=== PATIENT | female | born 1935 | race Caucasian/White ===

== ENCOUNTER 2018-09-04 17:21 | Inpatient (IN) | payer MEDICARE, MEDICAID ==
[2018-09-04 18:14] LABS: PTT 78.5 SEC (22.9-36.1)
[2018-09-04 18:15] LABS: Prothrombin Time 89.1 SEC (12.0-14.7)
[2018-09-04 18:18] LABS: Hemoglobin 12.5 g/dL (12.0-16.0); Mean Corpuscular HGB CONC 30.4 g/dL (32.0-36.0); Mean Corpuscular Hemoglobin 29.1 pg (27.0-31.0); Mean Corpuscular Volume 95.7 fL (78.0-98.0); Mean Platelet Volume 9.7 fL (7.4-10.4); Platelet Count 189 thou/uL (130-400); RBC Distribution Width 13.6 % (11.5-14.5); Red Blood Cell (RBC) Count 4.28 mill/uL (4.20-5.40); White Blood Cell (WBC) Count 4.6 thou/uL (4.8-10.8)
[2018-09-04 18:25] LABS: INR-International Normal Ratio 11.6
[2018-09-04 18:27] LABS: ALT (SGPT) 14 U/L (8-55); AST (SGOT) 18 U/L (5-34); Albumin 3.1 g/dL (3.4-4.8); Alkaline Phosphatase 136 U/L (40-150); Anion Gap 11 mmol/L (10-20); BUN (Urea Nitrogen) 55 mg/dL (9.8-20.1); Bilirubin, Total 1.2 mg/dL (0.2-1.2); Calc. Creatinine Clearance 0 mL/min (70-130); Calcium 9.9 mg/dL (7.8-10.44); Carbon Dioxide 22 mmol/L (23-31); Chloride 109 mmol/L (98-107); Estimated GFR-MDRD 23; Globulin 3.9 g/dL (2.4-3.5); Glucose 119 mg/dL (83-110); Magnesium 2.2 mg/dL (1.6-2.6); Sodium 137 mmol/L (136-145)
[2018-09-04 18:31] LABS: CKMB 3.2 ng/mL (0-6.6); Troponin I 0.021 ng/mL (< 0.028)
[2018-09-04 18:32] LABS: Eosinophils 3 % (0-10); Lymphocytes 20 % (21-51); MDiff Complete? YES; Monocytes 11 % (0-10); Neutrophil 64 % (42-75); PLT Morphology Comment Appears Adequate; RBC Morphology Normal
[2018-09-04 18:34] LABS: Bilirubin Negative (Negative); Blood, Urine Large (Negative); Clarity CLOUDY (Clear); Glucose, Urine (Dipstick) Negative (Negative); Leukocyte Large (Negative); Nitrite Positive (Negative); Protein, Urine (Dipstick) 100 mg/dL (Neg-Trace); Specific Gravity, Urine 1.017 (1.002-1.036); pH, Urine 7.5 (5.0-9.0)
[2018-09-04 18:38] LABS: Bacteria/HPF 4+ HPF (None Seen); Pathc Cast-AUWi Flag 1.45 (0-2.49); RBC/HPF GREATER THAN 50-TNTC HPF (0-3); Squamous Epithelial 0-3 HPF (0-3)
[2018-09-04] MEDS ORDERED: Phytonadione 10 MG in Sodium Chloride 0.9% 50 ML IVPB SCH (18:45)
[2018-09-04 18:49] LABS: Hyaline Casts/LPF 0-3 HYALINE CAST LPF (0-3 Hyaline)
[2018-09-04] MEDS ORDERED: cefTRIAXone\\ROCEPHIN 2 GM VIAL ONE (18:51)
--- NOTE | 2018-09-04 18:53 | RAD ---
CHEST ONE VIEW: 09/04/18 INDICATION: Cough with UTI. FINDINGS: There is cardiomegaly with pulmonary vascular congestion and bilateral perihilar edema. There are tin y bilateral pleural effusions. No pneumothorax is evident. There are vascular calcifications of the a ortic arch. No acute osseous abnormality is noted. IMPRESSION: Findings suggesting CHF. POS: [facility]
[2018-09-04 19:03] LABS: Analyzer IN Cardio ER; Base Excess (BEa) -3.7 mEq/L (-2.0 to +3.0); CO2 Tension 36.9 mmHg (35.0-45.0); Calcium, Ionized 1.25 mmol/L (1.12-1.30); Carboxyhemoglobin (COHb) 1.1 gm% (0.0-3.0); Hemoglobin (Hb) 12.4 g/dL (12.0-16.0); Potassium - ABG Lab 4.77 mmol/L (3.70-5.30); pH, Arterial 7.37 (7.35-7.45)
[2018-09-04 19:05] LABS: ALV-art Gradient 33.035 (0-20); Puncture Site RRA
[2018-09-04] MEDS ORDERED: Vancomycin HCl 500 MG VIAL ONE (20:23)
--- NOTE | 2018-09-04 21:27 | CT ---
CT OF THE BRAIN WITHOUT CONTRAST: 09/04/18 INDICATION: Altered mental status with history of infection and A-fib. FINDINGS: There is soft tissue gas seen within the scalp of the left temporalis region as well as overlying the left supraorbital region which is nonspecific. Generalized cerebral and cerebellar atrophy is stable. Chronic small vessel white matter ischemic ashly nge is similar appearing. No midline shift is present. The skull is intact. Mastoid air cells are liam ar. IMPRESSION: 1. No acute intracranial abnormality. 2. Scalp soft tissue gas may reflect laceration or possibly a wound within this area. Recommend correlation. Also this may be related to venous gas within the scalp veins related to recent IV initi ation. POS: [facility]
[2018-09-04 21:58] LABS: Lactic Acid 1.6 mmol/L (0.5-2.2)
[2018-09-05 00:27] VITALS: BMI 31.8
[2018-09-05] MEDS: Lactated Ringer's 1,000 ML IV SCH ×2 (01:00→09:29)
[2018-09-05] MEDS ORDERED: Acetaminophen 325 MG TAB PO PRN (01:38)
[2018-09-05] MEDS ORDERED: Bisacodyl 10 MG SUPP PR PRN (01:38)
[2018-09-05] MEDS ORDERED: Ondansetron ODT 4 MG TAB PO PRN (01:38)
[2018-09-05] MEDS: Piperacillin/Tazobactam 2.25 GM in Sodium Chloride 0.9% 100 ML IVPB SCH ×4 (02:48→20:43)
[2018-09-05] MEDS ORDERED: Docusate 100 MG CAP PO PRN (02:50)
[2018-09-05] MEDS ORDERED: Cholestyramine/Aspartame 4 gm Packet PO PRN (02:50)
[2018-09-05 04:59] LABS: ALT (SGPT) 12 U/L (8-55); AST (SGOT) 16 U/L (5-34); Albumin 2.7 g/dL (3.4-4.8); Alkaline Phosphatase 114 U/L (40-150); Anion Gap 13 mmol/L (10-20); BUN (Urea Nitrogen) 54 mg/dL (9.8-20.1); Bilirubin, Total 1.2 mg/dL (0.2-1.2); Calc. Creatinine Clearance 31 mL/min (70-130); Calcium 9.2 mg/dL (7.8-10.44); Carbon Dioxide 19 mmol/L (23-31); Chloride 113 mmol/L (98-107); Estimated GFR-MDRD 27; Globulin 3.3 g/dL (2.4-3.5); Glucose 90 mg/dL (83-110); Potassium 4.8 mmol/L (3.5-5.1); Sodium 140 mmol/L (136-145)
[2018-09-05 05:24] LABS: Band 2 % (5-11); Eosinophils 2 % (0-10); Hemoglobin 11.1 g/dL (12.0-16.0); Lymphocytes 22 % (21-51); MDiff Complete? YES; Mean Corpuscular HGB CONC 30.6 g/dL (32.0-36.0); Mean Corpuscular Hemoglobin 29.4 pg (27.0-31.0); Mean Corpuscular Volume 96.2 fL (78.0-98.0); Mean Platelet Volume 9.8 fL (7.4-10.4); Monocytes 15 % (0-10); Neutrophil 59 % (42-75); PLT Morphology Comment Appears Adequate; Platelet Count 181 thou/uL (130-400); RBC Distribution Width 13.6 % (11.5-14.5); RBC Morphology Normal; Red Blood Cell (RBC) Count 3.76 mill/uL (4.20-5.40); White Blood Cell (WBC) Count 5.8 thou/uL (4.8-10.8)
--- NOTE | 2018-09-05 08:55 | HP ---
CHIEF COMPLAINT: Urinary tract infection. HISTORY OF PRESENT ILLNESS: This is an 83-year-old female with past medical history of endocarditis, recurrent UTIs, constipation, dementia, atrial fibrillation, GERD, hypertension, CHF, cellulitis of the lower extremities, presenting with recurrent UTI, which has failed outpatient antibiotics. At th is point, the patient has been transferred from [place] and she has been getting worse on her Cipro ant ibiotics, which was given from before on 08/31/2018. REVIEW OF SYSTEMS: Unable to be obtained. The patient is demented. PAST MEDICAL HISTORY: Endocarditis, frequent UTIs, constipation, dementia, atrial fibrillation, GERD , edema, hypertension, CHF, cellulitis of the lower extremities bilaterally. PAST SURGICAL HISTORY: Unable to obtain at this time. PSYCHIATRIC HISTORY: Depression per electronic medical records. FAMILY HISTORY: Unable to obtain at this time. KNOWN ALLERGIES: TETANUS. CURRENT MEDICATIONS: Per the patient's electronic medical records, the patient takes acetaminophen, cholestyramine, Cipro, Colace, Coumadin 3 mg, Lasix 40 mg, lisinopril 5 mg, metoprolol 100 mg orally, Nystatin powder, pantoprazole, and potassium chloride. PHYSICAL EXAMINATION: VITAL SIGNS: Blood pressure is 166/99, pulse of 63, respiratory rate of 14, temperature of 92.3, O2 saturation of 100. GENERAL APPEARANCE: The patient is lying in bed, confused, demented. HEENT: Normocephalic, atraumatic. Pupils are equally round and reactive to light. Extraocular move ments are intact. No scleral icterus. NECK: Trachea is midline. No JVD. Full range of motion. LUNGS: Clear to auscultation bilaterally. No wheezing, no rales, no rhonchi appreciated. CARDIOVASCULAR: Positive S1 and S2, regular rate and rhythm. No murmurs, no gallops, no rubs apprec iated. ABDOMEN: Soft, nontender, nondistended, obese abdomen, positive bowel sounds in all quadrants. No m asses. No pulsatile mass. No peritoneal signs. EXTREMITIES: Patient has 5/5 upper extremity strength, 5/5 lower extremity strength. The patient chen s cellulitic changes at the lower extremity. This is some erythema with some mild abrasions noted at the anterior aspect of her leg, right leg is bigger than left leg. NEUROLOGIC: The patient is demented; however, the patient is able to move extremities spontaneously. No gross focal neurologic deficits noted. SKIN: Refer to description in extremities. PSYCHIATRIC: Demented. EKG: A 12-lead shows atrial fibrillation. EMERGENCY DEPARTMENT COURSE: The patient received vancomycin, Rocephin, vitamin K injection, sodium chloride. CT of the brain showed no acute intracranial pathology. Chest x-ray showed findings suggestive of CH F. LABORATORY DATA: WBC is 4.6, hemoglobin is 12.5, hematocrit is 41.0, platelets of 189. PT is 89.1. INR is 11.6, PTT 78.5. ABGs: Patient's pH is 7.3, pCO2 is 36, pO2 is 149. Sodium 137, potassium 5 .0, chloride 109, carbon dioxide of 22, BUN is 55, creatinine is 2.04, lactic acid of 2.2. TSH is 3. 4. Urine nitrite is positive and leukoesterase is large. ASSESSMENT AND PLAN: This is an 83-year-old female being admitted for: 1. Sepsis secondary to urinary tract infection. At this point, we are going to continue the patient on current antibiotics. We will continue gentle hydration. We will monitor the patient closely. 2. Hypothermia. Patient's TSH is normal. We are re-warming the patient with the Janette Hugger. We w ill continue to monitor the patient's blood pressure closely. 3. Supratherapeutic INR. We are giving the patient vitamin K. We will monitor patient's coags and trend the patient's INR. Patient's warfarin is being held at this time and can be started when INR i s below 3. 4. Dementia. Patient has a history of dementia. Patient's baseline is not really known. At this t jo, we will just monitor. 5. Lower extremity cellulitis. We have patient on vancomycin and patient is also on Rocephin. We w ill continue vancomycin and Rocephin. We will monitor the patient closely. 6. Deep venous thrombosis and gastrointestinal prophylaxis.
[2018-09-05] MEDS ORDERED: Prevnar 13-Val Conj/PF 0.5 ML SYRINGE IM ONE (09:00)
[2018-09-05] MEDS ORDERED: Lisinopril 5 MG TAB PO SCH (09:00)
[2018-09-05] MEDS: Famotidine 20 MG TAB PO SCH (09:17)
--- NOTE | 2018-09-05 09:55 | PDOC.PN ---
- Subjective Encounter Start Date: 09/05/18 Encounter Start Time: 09:54 Ms. Cortez was seen today in follow-up of UTI with sepsis. She is sleeping and will grimace a little, but will not awaken fully. - Objective Resuscitation Status: Resuscitation Status DNR:Do Not Resuscitate MAR Reviewed: Yes Vital Signs & Weight: Vital Signs (12 hours) Temp Pulse Resp BP Pulse Ox 09/05/18 08:00 100 09/05/18 07:44 99.6 F 61 14 83/39 L 100 09/05/18 04:00 95.5 F L 78 19 117/88 99 09/05/18 01:00 98 09/05/18 00:25 93.8 F L 56 L 20 142/112 H 98 Weight Weight 191 lb 12.835 oz I&O: 09/04/18 09/05/18 09/06/18 06:59 06:59 06:59 Intake Total 750 Output Total 350 Balance 400 Result Diagrams: 09/05/18 04:01 09/05/18 04:01 Additional Labs: Accuchecks 09/04/18 18:05 POC Glucose 112 H Phys Exam - Physical Examination HEENT: PERRLA, sclera anicteric Respiratory: no wheezing, no rales, no rhonchi, clear to auscultation bilateral Cardiovascular: no rub, irregular no gallop, and 2/6 systolic murmur Gastrointestinal: soft, non-tender, no distention, positive bowel sounds Musculoskeletal: pulses present, edema present + mild erythema bilaterally Neurological: moves all 4 limbs Dx/Plan (1) UTI (urinary tract infection) Status: Acute (2) Sepsis Code(s): A41.9 - SEPSIS, UNSPECIFIED ORGANISM Status: Acute (3) Warfarin-induced coagulopathy Code(s): D68.32 - HEMORRHAGIC DISORD D/T EXTRINSIC CIRCULATING ANTICOAGULANTS; T45.515A - ADVERSE EFFECT OF ANTICOAGULANTS, INITIAL ENCOUNTER Status: Acute (4) Acute kidney injury Code(s): N17.9 - ACUTE KIDNEY FAILURE, UNSPECIFIED Status: Acute (5) Acute metabolic encephalopathy Code(s): G93.41 - METABOLIC ENCEPHALOPATHY Status: Acute Comment: Due to sepsis (6) Dementia Code(s): F03.90 - UNSPECIFIED DEMENTIA WITHOUT BEHAVIORAL DISTURBANCE Status: Chronic (7) Persistent atrial fibrillation Code(s): I48.1 - PERSISTENT ATRIAL FIBRILLATION Status: Chronic - Plan * UTI with sepsis- continue Vancomycin and Zosyn- await urine culture results- culture results from her previous admission were noted ( E. Coli and Proteus- sensitive to quinolones). * Coagulopathy- due to coumadin, and exacerbated by sepsis- will re-check the INR today * Metabolic encephalopathy- from UTI and sepsis- continue treatment * Acute kidney Injury- from sepsis and volume depletion- will discontinue Lactated ringer's solution, and change to NS- continue to monitor creatinine * Cellulitis vs. Chronic venous stasis changes- continue antibiotics, and monitor progress * AFIB- her heart rate is controlled * Prognosis- guarded
[2018-09-05] MEDS ORDERED: Sodium Chloride 0.9% 500 ML IV SCH (10:15)
[2018-09-05 10:43] LABS: INR-International Normal Ratio 2.8; Prothrombin Time 29.7 SEC (12.0-14.7)
[2018-09-05] MEDS: Sodium Chloride 0.9% 1,000 ML IV SCH (12:02)
--- NOTE | 2018-09-05 15:44 | CON ---
DATE OF CONSULTATION: 09/05/2018 HISTORY: This is an 83-year-old demented patient who was brought in last night with a UTI. She is o n MICU. REASON FOR CONSULTATION: Unable to get any information from the patient. Clearly, she is encephalop athic. She apparently has had acute mental status change and hypertension. She carries a diagnosis of atrial fibrillation. She was placed on some kind of antibiotics, apparently did not get any better. There are no family members here at the bedside. She carries a past medical history of presumed endocarditis, congestive heart failure, cellulit is, dementia, Afib, and chronic constipation. PAST SURGICAL HISTORY: Unable to get at this time. MEDICATIONS: Medicine list that was brought in from the custodial includes, 1. Coumadin 3 mg. 2. Zoloft 100. 3. Potassium. 4. . 5. Lasix 40. She is now on vancomycin and Zosyn for presumed UTI. REVIEW OF SYSTEMS: Unobtainable. PHYSICAL EXAMINATION: VITALS: Saturations 100% on 3 liters, temperature is 99. Blood pressure 83/39. NEUROLOGICAL: Unresponsive. CHEST: Decreased breath sounds. No wheezing or crackles. CARDIAC: Normal S1, S2. No gallops. ABDOMEN: Soft, no masses. LABORATORY AND X-RAY FINDINGS: There was a blood gas done which shows a pO2 of 149, pCO2 of 36, pH o f 7.37, on 3 liters nasal O2. Creatinine is 1.8, BUN is 54. Electrolytes are normal. Urine shows g reater than 50 wbc's. ASSESSMENT: Urinary tract infection, dementia azotemia, possibly congestive heart failure based on t he x-ray. CT of brain, again no acute changes. She is apparently a DNR. Antibiotics for UTI continued. She probably can be transferred out of the IMCU. She is on no pressors. Pulmonary will follow while in the MICU. This is a consultation note, 70 minutes, 50% spent in direct patient care.
[2018-09-05] MEDS ORDERED: Warfarin Sodium 3 MG TAB PO SCH (17:00)
[2018-09-05] MEDS ORDERED: cefTRIAXone\\ROCEPHIN 1 GM in Sodium Chloride 0.9% 100 ML IVPB SCH (18:00)
[2018-09-05] MEDS ORDERED: Vancomycin HCl 1 GM in Premix Bag 1 BAG IVPB SCH (20:00)
[2018-09-06] MEDS: Sodium Chloride 0.9% 1,000 ML IV SCH ×3 (00:47→17:29)
[2018-09-06] MEDS: Piperacillin/Tazobactam 2.25 GM in Sodium Chloride 0.9% 100 ML IVPB SCH ×2 (02:29→09:22)
[2018-09-06 05:24] LABS: Prothrombin Time 22.7 SEC (12.0-14.7)
[2018-09-06 05:40] LABS: Band 1 % (5-11); Eosinophils 3 % (0-10); Hemoglobin 11.6 g/dL (12.0-16.0); Lymphocytes 24 % (21-51); MDiff Complete? YES; Mean Corpuscular HGB CONC 30.3 g/dL (32.0-36.0); Mean Corpuscular Hemoglobin 28.8 pg (27.0-31.0); Mean Corpuscular Volume 94.9 fL (78.0-98.0); Mean Platelet Volume 9.3 fL (7.4-10.4); Monocytes 9 % (0-10); Neutrophil 60 % (42-75); PLT Morphology Comment Appears Adequate; Platelet Count 162 thou/uL (130-400); RBC Distribution Width 13.6 % (11.5-14.5); RBC Morphology Normal; Reactive Lymphocytes 1 % (0-10); Red Blood Cell (RBC) Count 4.02 mill/uL (4.20-5.40); White Blood Cell (WBC) Count 7.1 thou/uL (4.8-10.8)
[2018-09-06 05:52] LABS: Anion Gap 13 mmol/L (10-20); BUN (Urea Nitrogen) 57 mg/dL (9.8-20.1); Calc. Creatinine Clearance 27 mL/min (70-130); Calcium 8.9 mg/dL (7.8-10.44); Carbon Dioxide 18 mmol/L (23-31); Chloride 117 mmol/L (98-107); Estimated GFR-MDRD 23; Glucose 84 mg/dL (83-110); Potassium 5.9 mmol/L (3.5-5.1); Sodium 142 mmol/L (136-145)
[2018-09-06] MEDS: Famotidine 20 MG TAB PO SCH (08:35)
--- NOTE | 2018-09-06 08:37 | EKG ---
Test Reason : SEPSIS ALERT Blood Pressure : / mmHG Vent. Rate : 058 BPM Atrial Rate : 067 BPM P-R Int : 000 ms QRS Dur : 100 ms QT Int : 508 ms P-R-T Axes : 000 -26 009 degrees QTc Int : 498 ms Atrial fibrillation with slow ventricular response Prolonged QT Abnormal ECG Confirmed by AUDRA CORTEZ ([id number]) on 09/06/2018 8:37:01 AM Referred By: Confirmed By:AUDRA CORTEZ
[2018-09-06] MEDS: cefTRIAXone\\ROCEPHIN 1 GM in Sodium Chloride 0.9% 100 ML IVPB SCH (11:33)
[2018-09-06] MEDS: Hydrocortisone Sod Succ/PF 100 mg/2 ml Vial IVP SCH ×2 (11:33→17:36)
[2018-09-06] MEDS ORDERED: Sodium Chloride 0.9% 500 ML IV SCH (12:15)
--- NOTE | 2018-09-06 12:20 | PRG ---
DATE OF SERVICE: 09/06/2018 SUBJECTIVE: This morning, she appears less responsive. PHYSICAL EXAMINATION: VITAL SIGNS: Systolic is only 98, sats 100% on 3 liters, temperature 97.2. GENERAL APPEARANCE: She appears to be . No verbal communication. CHEST: Decreased breath sounds, no wheezing. CARDIAC: Normal S1, S2, no gallops or masses. LABORATORY DATA: Sodium is 142, creatinine is 2, BUN is 57. Urine is growing Morganella. White count only 7,000. IMPRESSION: 1. Hypertension, urinary tract infection Morganella. 2. Encephalopathy. She is a DNR. PLAN: I have added IV fluids and steroids to her present antibiotic coverage. We will follow.
--- NOTE | 2018-09-06 12:23 | PDOC.PN ---
- Subjective Encounter Start Date: 09/06/18 Encounter Start Time: 12:21 Ms. Cortez was seen today in follow-up. I am told she was awake, and talking last night, but now she is very somnolent, and barely opens her eyes. - Objective Resuscitation Status: Resuscitation Status DNR:Do Not Resuscitate MAR Reviewed: Yes Vital Signs & Weight: Vital Signs (12 hours) Temp Pulse Resp BP Pulse Ox 09/06/18 11:02 96.3 F L 58 L 18 98/41 L 09/06/18 07:50 100 09/06/18 07:31 97.2 F L 19 94/46 L 09/06/18 04:00 97.2 F L 74 16 83/47 L 100 Weight Admit Weight 191 lb 12.835 oz Weight 191 lb 12.835 oz I&O: 09/05/18 09/06/18 09/07/18 06:59 06:59 06:59 Intake Total 750 3511 Output Total 350 250 Balance 400 3261 Result Diagrams: 09/06/18 04:56 09/06/18 04:56 Phys Exam - Physical Examination HEENT: PERRLA Respiratory: no wheezing, no rales, no rhonchi, clear to auscultation bilateral Cardiovascular: RRR, no significant murmur, no rub no gallop Gastrointestinal: soft, non-tender, no distention, positive bowel sounds Musculoskeletal: edema present + generalized edema on the upper and lower extremities, as well as some bruising Deviation from normal: Confused and somnolent Dx/Plan (1) UTI (urinary tract infection) Status: Acute (2) Sepsis Code(s): A41.9 - SEPSIS, UNSPECIFIED ORGANISM Status: Acute (3) Warfarin-induced coagulopathy Code(s): D68.32 - HEMORRHAGIC DISORD D/T EXTRINSIC CIRCULATING ANTICOAGULANTS; T45.515A - ADVERSE EFFECT OF ANTICOAGULANTS, INITIAL ENCOUNTER Status: Acute (4) Acute kidney injury Code(s): N17.9 - ACUTE KIDNEY FAILURE, UNSPECIFIED Status: Acute (5) Acute metabolic encephalopathy Code(s): G93.41 - METABOLIC ENCEPHALOPATHY Status: Acute Comment: Due to sepsis (6) Dementia Code(s): F03.90 - UNSPECIFIED DEMENTIA WITHOUT BEHAVIORAL DISTURBANCE Status: Chronic (7) Persistent atrial fibrillation Code(s): I48.1 - PERSISTENT ATRIAL FIBRILLATION Status: Chronic - Plan * UTI with sepsis- The urine culture is growing Morganella Morgani which is sensitive to Rocephin. Continue Rocephin * Acute renal failure- this has not improved- She may still be volume depleted- will nicanor a bolus of NS IV, and continue IV fluids- will also check a renl ultrasound * Coagulaopathy- improved- INR is now 2.0- can re-start coumadin * Cellulitis- continue Rocephin * AFIB- her heart rate is controlled * Prognosis is guarded, since she has not clinically improved, with appropriate treatment- will discuss with her family * She is stable for transition out of [facility].
--- NOTE | 2018-09-06 14:24 | ULT ---
RENAL ULTRASOUND: HISTORY: Acute renal failure. COMPARISON: None. TECHNIQUE: Sagittal and transverse imaging of the kidneys was performed. FINDINGS: There is bilateral renal cortical thinning. The right kidney measures 11.0 x 5.0 x 4.7 cm. The left kidney measures 11.0 x 6.4 x 6.5 cm. There are bilateral anechoic foci compatible with renal cortic al cysts. The largest cyst in the right kidney is in the superior pole measuring 5.1 x 5.0 x 4.8 cm. The largest cyst in the left kidney measures 4.6 x 4.3 x 5.0 cm. The urinary bladder is decompressed due to Anna catheterization. IMPRESSION: 1. No hydronephrosis. 2. Bilateral renal cortical cysts. POS: [facility]
[2018-09-07] MEDS ORDERED: Sodium Chloride 0.9% 250 ML IVPB SCH (00:15)
[2018-09-07] MEDS: Hydrocortisone Sod Succ/PF 100 mg/2 ml Vial IVP SCH ×4 (00:24→21:29)
[2018-09-07] MEDS: Sodium Chloride 0.9% 1,000 ML IV SCH ×3 (01:51→18:29)
[2018-09-07 04:47] LABS: Anion Gap 14 mmol/L (10-20); BUN (Urea Nitrogen) 58 mg/dL (9.8-20.1); Calc. Creatinine Clearance 29 mL/min (70-130); Calcium 9.8 mg/dL (7.8-10.44); Carbon Dioxide 19 mmol/L (23-31); Chloride 118 mmol/L (98-107); Estimated GFR-MDRD 24; Glucose 105 mg/dL (83-110); Potassium 5.3 mmol/L (3.5-5.1); Prothrombin Time 22.5 SEC (12.0-14.7); Sodium 146 mmol/L (136-145)
--- NOTE | 2018-09-07 09:18 | PRG ---
DATE OF SERVICE: 09/07/2018 SUBJECTIVE: This is an 83-year-old female, demented, not much verbal communication. OBJECTIVE: VITAL SIGNS: Blood pressure is 100/57, sats 100% on 3 liters, respirations 20, temperature 97. CHEST: No wheezing or crackles. CARDIAC: Normal S1 and S2. No gallops. ABDOMEN: Soft, no masses. LABORATORY DATA: Creatinine is 1.95, BUN 58. IMPRESSION: Urinary tract infection, sepsis syndrome, atrial fibrillation. PLAN: Continue ceftriaxone. Continue steroids, PT, supportive care, nutrition.
[2018-09-07] MEDS: Famotidine 20 MG TAB PO SCH (09:49)
[2018-09-07] MEDS: cefTRIAXone\\ROCEPHIN 1 GM in Sodium Chloride 0.9% 100 ML IVPB SCH (12:51)
[2018-09-07] MEDS ORDERED: HYDROcodone/Acetaminophen 10/325 mg Tablet PO PRN (16:44)
[2018-09-07] MEDS ORDERED: HYDROcodone/Acetaminophen 5/325 mg Tablet PO PRN (16:44)
--- NOTE | 2018-09-07 16:47 | PDOC.PN ---
- Subjective Encounter Start Date: 09/07/18 Encounter Start Time: 16:45 Mr. Cortez was seen today in follow-up of UTI with Acute renal failure. She is still quite confused. She appears to be uncomfortable. - Objective Resuscitation Status: Resuscitation Status DNR:Do Not Resuscitate MAR Reviewed: Yes Vital Signs & Weight: Vital Signs (12 hours) Temp Pulse Resp BP Pulse Ox 09/07/18 08:00 98.8 F 85 20 90/53 L 100 09/07/18 06:42 100 Weight Admit Weight 191 lb 12.835 oz Weight 191 lb 12.835 oz I&O: 09/06/18 09/07/18 09/08/18 06:59 06:59 06:59 Intake Total 3511 Output Total 250 300 Balance 3261 -300 Result Diagrams: 09/06/18 04:56 09/07/18 04:18 Phys Exam - Physical Examination HEENT: PERRLA Respiratory: no wheezing, no rales, no rhonchi, clear to auscultation bilateral Cardiovascular: RRR, no significant murmur, no rub Gastrointestinal: soft, no distention, positive bowel sounds Musculoskeletal: edema present + generalized edema, and some bruising Dx/Plan (1) UTI (urinary tract infection) Status: Acute (2) Sepsis Code(s): A41.9 - SEPSIS, UNSPECIFIED ORGANISM Status: Acute (3) Warfarin-induced coagulopathy Code(s): D68.32 - HEMORRHAGIC DISORD D/T EXTRINSIC CIRCULATING ANTICOAGULANTS; T45.515A - ADVERSE EFFECT OF ANTICOAGULANTS, INITIAL ENCOUNTER Status: Acute (4) Acute kidney injury Code(s): N17.9 - ACUTE KIDNEY FAILURE, UNSPECIFIED Status: Acute (5) Acute metabolic encephalopathy Code(s): G93.41 - METABOLIC ENCEPHALOPATHY Status: Acute Comment: Due to sepsis (6) Dementia Code(s): F03.90 - UNSPECIFIED DEMENTIA WITHOUT BEHAVIORAL DISTURBANCE Status: Chronic (7) Persistent atrial fibrillation Code(s): I48.1 - PERSISTENT ATRIAL FIBRILLATION Status: Chronic - Plan * UTI- continue Rocephin * Metabolic Encephalopathy- this has not improved. ? due in part to pain from Delirium- will add [place] for pain control. * Acute Kidney Injury- stable * AFIB- heart rate stable, and INR is 2.0 * The patient's condition has not improved much despite treatment for the UTI, and IV hydration for [place]. I explained this to the patient's son and daughter-in - law yesterday. They have agreed to Hospice Care at the Nursing Facility
[2018-09-08] MEDS: Sodium Chloride 0.9% 1,000 ML IV SCH ×3 (02:59→11:12)
[2018-09-08 05:26] LABS: INR-International Normal Ratio 2.9; Prothrombin Time 30.1 SEC (12.0-14.7)
[2018-09-08 07:42] VITALS: BP 107/72
[2018-09-08] MEDS: Famotidine 20 MG TAB PO SCH (07:43)
[2018-09-08] MEDS: Hydrocortisone Sod Succ/PF 100 mg/2 ml Vial IVP SCH (08:38)
--- NOTE | 2018-09-08 10:05 | PRG ---
DATE OF SERVICE: 09/08/2018 This morning she still remains encephalopathic. PHYSICAL EXAMINATION: VITAL SIGNS: Blood pressure 107/62, sats 100% on 3 liters, pulse 104, respirations 20. CHEST: Chest reveals decreased breath sounds, no wheezing. CARDIAC: Normal S1, S2. ABDOMEN: Soft, no masses. LABORATORY DATA: Creatinine 1.95. INR is 2. IMPRESSION: 1. Urinary tract infection. 2. Severe deconditioning. 3. Encephalopathy. 4. Prolonged PT/INR on Coumadin. PLAN: At this stage, nothing additional to offer, comfort care. I understand she is going to the hospice, skilled nursing transfer.
[2018-09-08] MEDS: cefTRIAXone\\ROCEPHIN 1 GM in Sodium Chloride 0.9% 100 ML IVPB SCH (11:11)
[2018-09-08 11:37] VITALS: TEMP 97
--- NOTE | 2018-09-08 23:49 | DIS ---
DATE OF ADMISSION: 09/04/2018 DATE OF DISCHARGE: 09/08/2018 DISCHARGE DISPOSITION: To [facility] with hospice. DISCHARGE DIAGNOSES: 1. Urinary tract infection. 2. Metabolic encephalopathy secondary to #1. 3. Acute kidney injury. 4. Dementia. 5. Persistent atrial fibrillation. DISCHARGE MEDICATIONS: Include Omnicef 300 mg twice a day for 5 days, Coumadin 3 mg daily, Zoloft 10 0 mg daily, pantoprazole 20 mg at bedtime, nystatin powder 60 grams twice a day, metoprolol 50 mg vic ly, docusate 100 mg daily, Cipro 250 mg twice daily, Tylenol as needed. PROCEDURES DONE DURING ADMISSION: The patient had a CT scan of the brain, showing no acute intracran ial abnormality. There was a soft tissue gas, possibly from a laceration to this area. Had a renal ultrasound, showing no hydronephrosis and some cortical renal cysts bilaterally. CODE STATUS: DNR. ALLERGIES: TETANUS TOXOID. HOSPITAL COURSE: Ms. Cortez is a pleasant 83-year-old female who was brought to the emergency room a fter having confusion and lethargy. She was admitted and found to have a urinary tract infection. T he urine grew Morganella morganii, which was sensitive to cephalosporins. She had been on Rocephin f or several days prior to obtaining the urine culture results and she had not improved much with regar d to her encephalopathy. Also, she had been on IV fluids and her renal function had not improved muc h either. A renal ultrasound was done to rule out obstruction and this was negative. There was no e vidence of any hydronephrosis. She was making urine. Therefore, I discussed with the family, her la ck of response to this treatment and it could be due to her advanced age and other comorbid condition s. She was not lucid enough to consistently take in adequate nutrition. As a result, it was felt th at her best option would be palliative care and hospice. She was therefore discharged to the snf on hospice. She can take the antibiotics as tolerated as well as her other medications. Howev er, the diuretics and potassium supplementation were discontinued due to inconsistent oral intake and the metoprolol, Zoloft, Coumadin can be taken as tolerated.
--- NOTE | 2018-09-10 13:24 | PQF ---
Please attempt to re-route to one of the providers who cared for the patient during the relevant admission. Let me know if this is not possible. Thank you. [employer] LISA Thompson CHIA-SHING [phone] CLINICAL DOCUMENTATION CLARIFICATION FORM: POST DISCHARGE Addendum to original discharge summary date: ____ Late entry note date: __ Please exercise your independent, professional judgment in responding to the clarification form. Clinical indicators are provided on the bottom of this form for your review Please check appropriate box(s): HEART FAILURE: A. TYPE: [ ] Systolic / HFrEF [ ] Diastolic / HFpEF [ ] Combined Systolic / Diastolic B. ACUITY [ ] Acute [ ] Acute on Chronic [ ] Chronic [ ] Other diagnosis [ ] Unable to determine In addition, please specify: Present on Admission (POA): [ ] Yes [ ] No [ ] Unable to determine For continuity of documentation, please document condition throughout progress notes and discharge summary. Thank You. CLINICAL INDICATORS - SIGNS / SYMPTOMS / LABS CHF- H&P. CONSULT 09/05, ED RISKS: Hypertension TREATMENTS: ON LASIX AT HOME (This form is maintained as a part of the permanent medical record) 2014 [employer]. All Rights Reserved [email or web address] [email or web address] [phone] [email or web address]
== END 2018-09-08 16:09 | disposition hospice, inpatient (51) | DRG 871 ==
LOC: ERS 17:21 → IMCU/EMU 23:09 → T4-B 09-06 15:57
PROVIDERS: ADMIT Internal Medicine; ATTEND Internal Medicine
DX: A41.9 Sepsis, unspecified organism (principal); G93.41 Metabolic encephalopathy; N39.0 Urinary tract infection, site not specified; L03.116 Cellulitis of left lower limb; L03.115 Cellulitis of right lower limb; D68.32 Hemorrhagic disorder due to extrinsic circulating anticoagulants; N17.9 Acute kidney failure, unspecified; I48.1 Persistent atrial fibrillation; Z51.5 Encounter for palliative care; K59.00 Constipation, unspecified; F03.90 Unspecified dementia, unspecified severity, without behavioral disturbance, psychotic disturbance, mood disturbance, and anxiety; K21.9 Gastro-esophageal reflux disease without esophagitis; I11.0 Hypertensive heart disease with heart failure; I50.9 Heart failure, unspecified; F32.9 Major depressive disorder, single episode, unspecified; T45.515A Adverse effect of anticoagulants, initial encounter; Z66 Do not resuscitate
CPT/HCPCS: 36415; 36416; 51702; 70450; 71045; 76770; 80048; 80053; 81003; 81015; 82553; 82805; 83605; 83735; 84443; 84484; 85025; 85610; 85730; 87040; 87077; 87086; 87186; 93005; 96361; 96365; 96367; A4353; G8996-GN-CN; G8997-GN-CM; J0696; J1720; J2543; J3370; J3430; J7050; P9045